=== PATIENT | male | born 2000 | race Caucasian/White ===

== ENCOUNTER 2021-03-13 14:18 | Inpatient (IN) | payer OTHER ==
[2021-03-13] MEDS ORDERED: Boostrix 0.5 ML (Tdap) VIAL ONE (15:33)
[2021-03-13] MEDS ORDERED: Lidocaine 1% w/Epinephrine 1:100K 20 ML VIAL ONE (15:43)
[2021-03-13] MEDS ORDERED: Bacitracin 1 PK ONE (15:43)
[2021-03-13] MEDS ORDERED: Morphine 4 MG/ML VIAL ONE ×2 (16:18→17:53)
[2021-03-13] MEDS ORDERED: Ondansetron PF 4 MG/2 ML Vial ONE ×2 (16:18→17:53)
[2021-03-13 16:38] LABS: #Basophils 0.1 thou/uL (0.0-0.2); #Lymphocytes 1.5 thou/uL (1.20-3.40); #Monocytes 1.1 thou/uL (0.11-0.59); #Neutrophils 14.8 thou/uL (1.40-6.50); %Basophils 0.5 % (0.0-1.0); %Eosinophils 0.1 % (0.0-10.0); %Lymphocytes 8.3 % (21.0-51.0); %Monocytes 6.5 % (0.0-10.0); %Neutrophils 84.7 % (42.0-75.0); Hemoglobin 15.6 g/dL (14.0-18.0); Mean Corpuscular HGB CONC 32.4 g/dL (32.0-36.0); Mean Corpuscular Hemoglobin 28.9 pg (27.0-31.0); Mean Corpuscular Volume 89.4 fL (78.0-98.0); Mean Platelet Volume 8.4 fL (7.4-10.4); Platelet Count 238 thou/uL (130-400); RBC Distribution Width 12.5 % (11.5-14.5); Red Blood Cell (RBC) Count 5.38 mill/uL (4.70-6.10); White Blood Cell (WBC) Count 17.5 thou/uL (4.8-10.8)
[2021-03-13 16:54] LABS: INR-International Normal Ratio 1.1; PTT 27.7 sec (22.9-36.1); Prothrombin Time 14.6 sec (12.0-14.7)
[2021-03-13 17:03] LABS: ALT (SGPT) 25 U/L (8-55); AST (SGOT) 20 U/L (5-34); Albumin 4.7 g/dL (3.5-5.0); Alkaline Phosphatase 71 U/L (40-110); Anion Gap 13 mmol/L (10-20); BUN (Urea Nitrogen) 14 mg/dL (8.9-20.6); Bilirubin, Total 0.8 mg/dL (0.2-1.2); Calc. Creatinine Clearance 0 mL/min (70-130); Calcium 10.1 mg/dL (7.8-10.44); Carbon Dioxide 25 mmol/L (22-29); Chloride 104 mmol/L (98-107); Globulin 3.2 g/dL (2.4-3.5); Glucose 143 mg/dL (70-105); Potassium 3.4 mmol/L (3.5-5.1); Protein, Total 7.9 g/dL (6.0-8.3); Sodium 139 mmol/L (136-145)
[2021-03-13] MEDS ORDERED: Clindamycin/D5W 600 mg/50 ml Premix Bag ONE (18:25)
[2021-03-13] MEDS ORDERED: Dextrose 50% Abboject 50 ML SYRINGE SLOW IVP PRN (18:37)
[2021-03-13] MEDS ORDERED: Dextrose 5% in Water 1,000 ML IV PRN (18:37)
[2021-03-13] MEDS ORDERED: Ondansetron ODT 4 MG TAB PO PRN (18:37)
[2021-03-13] MEDS ORDERED: Ondansetron PF 4 MG/2 ML Vial IVP PRN (18:37)
[2021-03-13] MEDS ORDERED: traMADol HCl 50 MG TAB PO PRN (18:47)
[2021-03-13] MEDS ORDERED: Cyclobenzaprine 10 MG TAB PO PRN (18:47)
[2021-03-13] MEDS ORDERED: Morphine 4 MG/ML VIAL SLOW IVP PRN (20:01)
[2021-03-13] MEDS ORDERED: Potassium Chloride 40 MEQ in Sodium Chloride 0.9% 250 ML 250 ML IVPB SCH (20:30)
[2021-03-13] MEDS: traMADol HCl 50 MG TAB PO SCH (20:53)
[2021-03-13] MEDS: Famotidine/PF 20 mg/2ml Vial SLOW IVP SCH (20:53)
[2021-03-13] MEDS: Acetaminophen 500 MG TAB PO SCH (20:53)
[2021-03-13] MEDS: Bacitracin Zinc Ointment 30 gm TUBE TOP SCH (20:54)
[2021-03-13] MEDS: Silver Sulfadiazine 50 GM TUBE TOP SCH (20:54)
[2021-03-13] MEDS: Chlorhexidine Gluconate 15 ML UDCUP SSP SCH (20:55)
[2021-03-13 21:13] VITALS: BMI 19.3
[2021-03-13] MEDS: Sodium Chloride 0.9% 1,000 ML IV SCH (21:40)
[2021-03-14] MEDS: Ketorolac Tromethamine 30 MG/ML VIAL IVP SCH ×5 (00:39→21:08)
[2021-03-14] MEDS: Acetaminophen 500 MG TAB PO SCH ×4 (02:53→21:16)
[2021-03-14] MEDS: Clindamycin/D5W 600 MG in Premix Bag 1 BAG IVPB SCH ×3 (02:54→16:49)
[2021-03-14] MEDS: traMADol HCl 50 MG TAB PO SCH ×3 (02:54→15:14)
[2021-03-14 06:21] LABS: #Basophils 0.1 thou/uL (0.0-0.2); #Eosinphils 0.1 thou/uL (0.0-0.7); #Monocytes 1.6 thou/uL (0.11-0.59); #Neutrophils 7.6 thou/uL (1.40-6.50); %Basophils 0.4 % (0.0-1.0); %Eosinophils 0.6 % (0.0-10.0); %Lymphocytes 24.4 % (21.0-51.0); %Monocytes 12.8 % (0.0-10.0); %Neutrophils 61.7 % (42.0-75.0); Hemoglobin 13.8 g/dL (14.0-18.0); Mean Corpuscular HGB CONC 34.4 g/dL (32.0-36.0); Mean Corpuscular Hemoglobin 30.6 pg (27.0-31.0); Mean Corpuscular Volume 89.1 fL (78.0-98.0); Mean Platelet Volume 8.6 fL (7.4-10.4); Platelet Count 190 thou/uL (130-400); RBC Distribution Width 12.3 % (11.5-14.5); Red Blood Cell (RBC) Count 4.49 mill/uL (4.70-6.10); White Blood Cell (WBC) Count 12.3 thou/uL (4.8-10.8)
[2021-03-14 06:52] LABS: Anion Gap 9 mmol/L (10-20); BUN (Urea Nitrogen) 14 mg/dL (8.9-20.6); Calc. Creatinine Clearance 106 mL/min (70-130); Calcium 8.9 mg/dL (7.8-10.44); Carbon Dioxide 26 mmol/L (22-29); Chloride 106 mmol/L (98-107); Glucose 86 mg/dL (70-105); Phosphorus 4.2 mg/dL (2.3-4.7); Potassium 4.3 mmol/L (3.5-5.1); Sodium 137 mmol/L (136-145)
[2021-03-14] MEDS: Chlorhexidine Gluconate 15 ML UDCUP SSP SCH ×3 (08:48→21:08)
[2021-03-14] MEDS: Sodium Chloride 0.9% 1,000 ML IV SCH ×2 (08:48→16:42)
[2021-03-14] MEDS: Famotidine/PF 20 mg/2ml Vial SLOW IVP SCH ×2 (08:48→21:08)
[2021-03-14] MEDS: Silver Sulfadiazine 50 GM TUBE TOP SCH ×2 (08:50→21:09)
[2021-03-14] MEDS: Bacitracin Zinc Ointment 30 gm TUBE TOP SCH ×3 (08:51→21:09)
[2021-03-14 11:58] LABS: SARS-CoV-2 NAA Rapid Test Not Detected (NotDetected)
[2021-03-14] MEDS ORDERED: Lidocaine 1% w/Epinephrine 1:100K 20 ML VIAL ONE (12:59)
[2021-03-14] MEDS ORDERED: Chlorhexidine Gluconate 15 ML UDCUP SSP ONE (12:59)
[2021-03-14] MEDS ORDERED: Bacitracin Zinc Ointment 30 gm TUBE ONE (12:59)
[2021-03-14] MEDS ORDERED: Midazolam HCl 2 mg/2 ml Vial ONE (13:00)
[2021-03-14] MEDS ORDERED: Fentanyl 250 MCG/5 ML VIAL ONE (13:00)
[2021-03-14] MEDS ORDERED: Succinylcholine 200 MG/10 ml SYRINGE FS ONE (13:05)
[2021-03-14] MEDS ORDERED: PROPOFOL 200 MG/20 ML VIAL ONE (13:05)
[2021-03-14] MEDS ORDERED: Glycopyrrolate 0.2 MG/ML 5 ML SYRINGE ONE (13:05)
[2021-03-14] MEDS ORDERED: Lidocaine 1% PF 5 ML VIAL ONE (13:05)
[2021-03-14] MEDS ORDERED: Ondansetron PF 4 MG/2 ML Vial ONE (13:05)
[2021-03-14] MEDS ORDERED: Ketorolac Tromethamine 30 MG/ML VIAL ONE (13:05)
[2021-03-14] MEDS ORDERED: Rocuronium Bromide 10 MG/ML (10ML VIAL) ONE (13:05)
[2021-03-14] MEDS ORDERED: Dexamethasone 20 MG/5 ML VIAL ONE (13:05)
[2021-03-14] MEDS ORDERED: Acetaminophen W/ Codeine 5 ML UDCUP PO PRN ×2 (20:01)
[2021-03-15] MEDS: Acetaminophen 650 MG/20.3 ML UDCUP PO SCH ×3 (00:09→13:21)
[2021-03-15] MEDS: Clindamycin/D5W 600 MG in Premix Bag 1 BAG IVPB SCH (02:47)
[2021-03-15] MEDS: Sodium Chloride 0.9% 1,000 ML IV SCH ×2 (02:47→13:21)
[2021-03-15] MEDS: Ketorolac Tromethamine 30 MG/ML VIAL IVP SCH ×2 (04:35→09:02)
[2021-03-15 06:04] LABS: #Lymphocytes 1.5 thou/uL (1.20-3.40); #Monocytes 1.2 thou/uL (0.11-0.59); #Neutrophils 11.1 thou/uL (1.40-6.50); %Basophils 0.1 % (0.0-1.0); %Lymphocytes 10.6 % (21.0-51.0); %Monocytes 8.4 % (0.0-10.0); %Neutrophils 80.9 % (42.0-75.0); Hemoglobin 13.2 g/dL (14.0-18.0); Mean Corpuscular HGB CONC 32.4 g/dL (32.0-36.0); Mean Corpuscular Hemoglobin 29.2 pg (27.0-31.0); Mean Corpuscular Volume 90.1 fL (78.0-98.0); Mean Platelet Volume 8.6 fL (7.4-10.4); Platelet Count 181 thou/uL (130-400); RBC Distribution Width 12.6 % (11.5-14.5); Red Blood Cell (RBC) Count 4.52 mill/uL (4.70-6.10); White Blood Cell (WBC) Count 13.7 thou/uL (4.8-10.8)
[2021-03-15 06:32] LABS: Anion Gap 11 mmol/L (10-20); BUN (Urea Nitrogen) 11 mg/dL (8.9-20.6); Calc. Creatinine Clearance 122 mL/min (70-130); Calcium 9.3 mg/dL (7.8-10.44); Carbon Dioxide 27 mmol/L (22-29); Chloride 105 mmol/L (98-107); Glucose 94 mg/dL (70-105); Magnesium 1.9 mg/dL (1.6-2.6); Phosphorus 4.2 mg/dL (2.3-4.7); Potassium 4.8 mmol/L (3.5-5.1); Sodium 138 mmol/L (136-145)
[2021-03-15] MEDS: Famotidine/PF 20 mg/2ml Vial SLOW IVP SCH (08:58)
[2021-03-15] MEDS: Chlorhexidine Gluconate 15 ML UDCUP SSP SCH (08:58)
[2021-03-15] MEDS: Silver Sulfadiazine 50 GM TUBE TOP SCH (08:58)
[2021-03-15] MEDS: Bacitracin Zinc Ointment 30 gm TUBE TOP SCH ×2 (08:58→15:14)
[2021-03-15] MEDS ORDERED: Amoxicillin/Potassium Clav 400 mg/5 ml Oral Suspension PO SCH (09:00)
[2021-03-15 14:19] VITALS: BP 106/64; TEMP 97.4
== END 2021-03-15 15:12 | disposition home or self-care (01) | DRG 141 ==
LOC: ERS 14:18 → EDBD 14:18 → SURG A 18:37 → UNDOADMIN 18:46 → SURG A 18:46
PROVIDERS: ADMIT Surgery; ATTEND Surgery
PROC: 0NST04Z Reposition Right Mandible with Internal Fixation Device, Open Approach (ICD-10-PCS; principal; 2021-03-14)
PROC: 0NSVXZZ Reposition Left Mandible, External Approach (ICD-10-PCS; 2021-03-14)
PROC: 0CDWXZ0 Extraction of Upper Tooth, Single, External Approach (ICD-10-PCS; 2021-03-14)
DX: S02.601A Fracture of unspecified part of body of right mandible, initial encounter for closed fracture (principal); S02.32XA Fracture of orbital floor, left side, initial encounter for closed fracture; S06.0X9A Concussion with loss of consciousness of unspecified duration, initial encounter; S02.622A Fracture of subcondylar process of left mandible, initial encounter for closed fracture; S02.5XXA Fracture of tooth (traumatic), initial encounter for closed fracture; Z20.822 Contact with and (suspected) exposure to COVID-19; V00.131A Fall from skateboard, initial encounter; S02.40FA Zygomatic fracture, left side, initial encounter for closed fracture; S01.81XA Laceration without foreign body of other part of head, initial encounter
CPT/HCPCS: 12013; 36415; 70450; 70486; 71045; 72125; 80048; 80053; 83735; 84100; 85025; 85610; 85730; 86850; 86900; 86901; 90471; 90715; 96365; 96375; 96376; C1713; G0390; J1100; J1885; J2250; J2270; J2405; J2704; J3010; J3480; J3490; J7050; S0028; U0002; U0003; U0005

== ENCOUNTER 2023-01-21 11:12 | Outpatient (CLI) | payer OTHER | END 2023-01-21 11:13 | disposition home or self-care (01) | LOC: RAD 11:12 | PROVIDERS: ATTEND Family Medicine | DX: M41.9 Scoliosis, unspecified (principal) | CPT/HCPCS: 72081 ==

== ENCOUNTER 2023-05-14 15:45 | Outpatient (CLI) | payer OTHER | END 2023-05-14 15:46 | disposition home or self-care (01) | LOC: ULT 15:45 | PROVIDERS: ATTEND Family Medicine | DX: R10.2 Pelvic and perineal pain (principal); I86.1 Scrotal varices; N43.3 Hydrocele, unspecified; N32.89 Other specified disorders of bladder | CPT/HCPCS: 76856; 76870; 93976 ==

== ENCOUNTER 2023-05-20 09:38 | Outpatient (CLI) | payer OTHER | END 2023-05-20 09:39 | disposition home or self-care (01) | LOC: MRI 09:38 | PROVIDERS: ATTEND Family Medicine | DX: M41.9 Scoliosis, unspecified (principal); R10.2 Pelvic and perineal pain; M51.27 Other intervertebral disc displacement, lumbosacral region | CPT/HCPCS: 72146; 72148 ==